=== PATIENT | male | born 1945 | race African-American/Black ===

== ENCOUNTER 2021-06-20 15:16 | Emergency (ER) | payer OTHER, BC ==
[2021-06-20] MEDS ORDERED: FENTANYL CITR 100 MCG/2 ML ONE (16:47)
[2021-06-20] MEDS ORDERED: FAMOTIDINE 20 MG/2 ML VIAL IV ONE (16:48)
[2021-06-20] MEDS ORDERED: NA CHLORIDE 0.9% 500 ML ONE (16:48)
[2021-06-20] MEDS ORDERED: ONDANSETRON 4 MG/2 ML VIAL ONE (16:48)
[2021-06-20 17:01] LABS: Absolute Lymphocytes (CBC) 1.1 K/uL (0.7-4.9); Basophils % 0.9 % (0-1.3); Hematocrit 34.9 % (39.6-49.0); Lymphocytes % 24.1 % (15.3-44.8); MPV 7.7 fL (7.6-11.3); Protime INR 1.05; RBC Red Blood Cell Count 4.06 M/uL (4.33-5.43)
[2021-06-20 17:27] LABS: ALT/SGPT 23 U/L (12-78); AST/SGOT 24 U/L (15-37); Albumin 3.9 g/dL (3.4-5.0); Alkaline Phosphatase 69 U/L (45-117); BUN Blood Urea Nitrogen 28 mg/dL (7-18); Bicarbonate 27 mmol/L (21-32); Bilirubin Direct < 0.1 mg/dL (0-0.2); Bilirubin Total 0.2 mg/dL (0.2-1.0); Glucose Level 146 mg/dL (74-106); Lipase 47 U/L (73-393); Magnesium 2.4 mg/dL (1.8-2.4); NT PRO-BNP 26 pg/mL (<450); Potassium 3.7 mmol/L (3.5-5.1); Protein, Total 7.2 g/dL (6.4-8.2); Sodium Level 142 mmol/L (136-145); Troponin (Emerg Dept Use Only) < 0.02 ng/mL (0.0-0.045)
--- NOTE | 2021-06-20 18:41 | RAD REPORT ---
EXAM DESCRIPTION: CT - Abdomen Pelvis Wo Contrast - 06/20/2021 6:30 pm CLINICAL HISTORY: Abdominal pain. ABD PAIN COMPARISON: <Comparisons> TECHNIQUE: CT imaging of the abdomen and pelvis was performed without contrast. Solid organ, bowel a nd vascular assessment is limited due to lack of IV and oral contrast. All CT scans are performed using dose optimization technique as appropriate and may include automated exposure control or mA/KV adjustment according to patient size. FINDINGS: The lower lung [place] are clear.Mild circumferential thickened distal esophagus. The liver, spleen, pancreas, adrenal glands and kidneys are within normal limits for a limited non-co ntrast examination. No bowel obstruction, free air, free fluid or abscess. Penile prosthesis. Normal appendix. The osseous structures are within normal limits. IMPRESSION: No acute intra-abdominal or pelvic findings. Incidental findings as noted above. A limited non-contrast examination was performed as detailed.
--- NOTE | 2021-06-20 19:01 | RAD REPORT ---
EXAM DESCRIPTION: RAD - Chest Single View - 06/20/2021 4:19 pm CLINICAL HISTORY: abdominal pain COMPARISON: Chest Pa And Lat (2 Views) dated 01/09/2020 FINDINGS: No evidence of edema or pneumonia. Mild cardiomegaly.No acute osseous abnormality. No sign ificant pleural effusions or pneumothorax. IMPRESSION: No acute cardiopulmonary disease.
[2021-06-20] MEDS ORDERED: PANTOPRAZOLE 40 MG INJ ONE (19:44)
--- NOTE | 2021-06-22 16:51 | EDPHYS ---
Physician Documentation [facility] Name: Fredy Bourne Sr Age: 75 yrs Sex: Male : 1945 Arrival Date: 06/20/2021 Time: 15:16 Bed 18 Private MD: ED Physician Ben Keen HPI: 06/20 16:10 This 75 yrs old Black Male presents to ER via Ambulatory with complaints of Abdominal cp Pain. 16:10 The patient presents with abdominal pain mid abdomen. Onset: The symptoms/episode cp began/occurred 1 hour(s) ago. The symptoms do not radiate. Associated signs and symptoms: Pertinent positives: nausea, Pertinent negatives: anorexia, blood in stools, chest pain, constipation, diarrhea, fever, testicular pain, vomiting. The symptoms are described as dull, waxing/waning. Modifying factors: the symptoms are aggravated by pressure. Severity of pain: in the emergency department the pain is unchanged despite home interventions. Historical: - Allergies: 15:33 No Known Allergies; ss - PMHx: 15:33 Crohn's disease; Hypertensive disorder; Gastric reflux; ss - Immunization history:: Adult Immunizations up to date. - Social history:: Smoking status: Patient denies any tobacco usage or history of. ROS: 16:15 Constitutional: Negative for body aches, chills, fever, poor PO intake. cp 16:15 Eyes: Negative for injury, pain, redness, and discharge. cp 16:15 ENT: Negative for ear pain, sore throat, difficulty swallowing, difficulty handling secretions. 16:15 Cardiovascular: Negative for chest pain, palpitations. 16:15 Respiratory: Negative for cough, shortness of breath, wheezing. 16:15 Abdomen/GI: Positive for abdominal pain, nausea, Negative for vomiting, diarrhea, constipation, anorexia, black/tarry stool, rectal bleeding. 16:15 Back: Negative for radiated pain. 16:15 : Negative for urinary symptoms. 16:15 Neuro: Negative for altered mental status, dizziness, headache, weakness. 16:15 All other systems are negative. Exam: 16:20 Constitutional: The patient appears in no acute distress, alert, awake, non-toxic, well cp developed, well nourished, uncomfortable. 16:20 Head/Face: Normocephalic, atraumatic. cp 16:20 Eyes: Periorbital structures: appear normal, Conjunctiva: normal, no exudate, no injection, Sclera: no appreciated abnormality, Lids and lashes: appear normal, bilaterally. 16:20 ENT: External ear(s): are unremarkable, Nose: is normal, Mouth: Lips: moist, Oral mucosa: moist, Posterior pharynx: Airway: no evidence of obstruction, patent. 16:20 Chest/axilla: Inspection: normal, Palpation: is normal, no crepitus, no tenderness. 16:20 Cardiovascular: Rate: normal, Rhythm: regular. 16:20 Respiratory: the patient does not display signs of respiratory distress, Respirations: normal, no use of accessory muscles, no retractions, labored breathing, is not present, Breath sounds: are clear throughout, no decreased breath sounds. 16:20 Abdomen/GI: Inspection: abdomen appears normal, Bowel sounds: active, all quadrants, Palpation: soft, in all quadrants, moderate abdominal tenderness, in the right upper quadrant, left upper quadrant and left lower quadrant, rebound tenderness, is not appreciated, voluntary guarding, is elicited in the right upper quadrant, left upper quadrant and left lower quadrant. 16:20 Back: pain, is absent, ROM is normal. 17:07 ECG was reviewed by the Attending Physician. cp Vital Signs: 15:34 BP 97 / 50; Pulse 76; Resp 18; Temp 98.1(TE); Pulse Ox 99% on R/A; Weight 58.51 kg; ss Height 5 ft. 6 in. (167.64 cm); Pain 9/10; 16:30 BP 142 / 68; Pulse 80; Resp 17; Pulse Ox 100% ; bp 17:30 BP 127 / 70; Pulse 82; Resp 15; Pulse Ox 100% ; bp 18:27 BP 141 / 73; Pulse 85; Resp 14; Pulse Ox 98% ; bp 20:00 BP 149 / 79; Pulse 84; Resp 18; Pulse Ox 100% on R/A; jb4 15:34 Body Mass Index 20.82 (58.51 kg, 167.64 cm) ss MDM: 16:03 Patient medically screened. cp 17:00 Differential diagnosis: bowel obstruction, gastritis, non-specific abd pain, cp pancreatitis, Peptic Ulcer Disease, Perf. Duodenal Ulcer, Perf. Gastric Ulcer, exacerbation of Crohn's disease. 19:45 Data reviewed: vital signs, nurses notes, lab test result(s), radiologic studies, CT cp scan. 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 19:47 Response to treatment: the patient's symptoms have markedly improved after treatment, cp VSS. Pain improved. Discussed results of labs and radiology studies that showed concern for thickening of distal esophagus. Will discharge to home and recommend f/u with GI. 06/20 16:05 Order name: Basic Metabolic Panel 06/20 16:05 Order name: CBC with Diff 06/20 16:05 Order name: LFT's; Complete Time: 18:20 06/20 16:05 Order name: Magnesium; Complete Time: 18:20 06/20 16:05 Order name: NT PRO-BNP; Complete Time: 18:20 06/20 16:05 Order name: PT-INR; Complete Time: 18:20 06/20 16:05 Order name: Troponin (emerg Dept Use Only); Complete Time: 18:20 06/20 16:05 Order name: XRAY Chest (1 view); Complete Time: 19:03 06/20 16:05 Order name: Lipase; Complete Time: 18:20 06/20 16:06 Order name: Basic Metabolic Panel; Complete Time: 18:20 EDME 06/20 18:21 Interpretation: Normal except: CL 108; GLUC 146; BUN 28; CRE 1.54; GFR 53; CA 8.4. 06/20 16:06 Order name: CBC with Automated Diff; Complete Time: 18:20 EDMS 06/20 18:21 Interpretation: Normal except: RBC 4.06; HGB 11.7; HCT 34.9; MN% 13.1. 06/20 18:04 Order name: Abdomen ; Complete Time: 19:03 EDME 06/20 16:05 Order name: EKG; Complete Time: 16:06 cp 06/20 16:05 Order name: Cardiac monitoring; Complete Time: 16:47 06/20 16:05 Order name: EKG - Nurse/Tech; Complete Time: 17:02 cp 06/20 16:05 Order name: IV Saline Lock; Complete Time: 16:46 cp 06/20 16:05 Order name: Labs collected and sent; Complete Time: 16:46 cp 06/20 16:05 Order name: O2 Per Protocol; Complete Time: 16:46 cp 06/20 16:05 Order name: O2 Sat Monitoring; Complete Time: 16:46 cp 06/20 19:45 Order name: PO challenge; Complete Time: 20:02 cp EC: Rate is 86 beats/min. Rhythm is regular. OH interval is normal. QRS interval is normal. cp QT interval is normal. T waves are Inverted in lead aVR. Interpreted by me. Reviewed by me. Administered Medications: 16:40 Drug: NS 0.9% 500 ml Route: IV; Rate: bolus; Site: right forearm; bp 16:40 Drug: Zofran (Ondansetron) 4 mg Route: IVP; Site: right forearm; bp 16:40 Drug: Pepcid (famotidine) 20 mg Route: IVP; Site: right forearm; bp 16:40 Drug: fentaNYL (PF) 25 mcg Route: IVP; Site: right forearm; bp 19:15 Drug: ProTONIX (pantoprazole) 40 mg Route: IVP; Site: right antecubital; jb4 20:28 Follow up: Response: No adverse reaction jb4 Disposition Summary: 06/20/21 19:47 Discharge Ordered Location: Home cp Problem: an acute exacerbation cp Symptoms: have improved cp Condition: Stable cp Diagnosis - Abdominal pain, unspecified - history of Crohn's Disease cp Followup: cp - With: Frank Kaur MD - When: 2 - 3 days - Reason: Recheck today's complaints Discharge Instructions: - Discharge Summary Sheet cp - Abdominal Pain, Adult cp - Crohn's Disease cp Forms: - Medication Reconciliation Form cp - Thank You Letter cp - Antibiotic Education cp - Prescription Opioid Use cp Prescriptions: - Cipro 500 mg Oral Tablet - take 1 tablet by ORAL route every 12 hours for 10 days; 20 tablet; Refills: 0, cp Product Selection Permitted - Protonix 40 mg Oral Tablet - take 1 tablet by ORAL route once daily; 30 tablet; Refills: 0, Product cp Selection Permitted - Zofran 4 mg Oral Tablet - take 1 tablet by ORAL route every 12 hours As needed; 20 tablet; Refills: 0, cp Product Selection Permitted - Metronidazole 500 mg Oral Tablet - take 1 tablet by ORAL route every 8 hours; 30 tablet; Refills: 0, Product cp Selection Permitted - Medrol (Phillip) 4 mg Oral Tablets, Dose Pack - take 1 tablet by ORAL route as directed - follow package instructions; 1 cp packet; Refills: 0, Product Selection Permitted - dicyclomine 20 mg Oral Tablet - take 1 tablet by ORAL route 4 times per day; 30 tablet; Refills: 0, Product cp Selection Permitted Signatures: Dispatcher [employer] EDMS Kenzie Nguyễn RN RN ss Jorge Lorenzo PA PA cp Madi Waters, RN RN jb4 Hernando Cota RN RN bp Corrections: (The following items were deleted from the chart) 18:04 16:41 Abdomen Pelvis W Con+CT.RAD.BRZ ordered. EDME EDMS
--- NOTE | 2021-06-22 16:51 | ER ---
Nurse's Notes [facility] Name: Fredy Bourne Sr Age: 75 yrs Sex: Male : 1945 Arrival Date: 06/20/2021 Time: 15:16 Bed 18 Private MD: Diagnosis: Abdominal pain, unspecified-history of Crohn's Disease Presentation: 06/20 15:25 Chief complaint: Patient states: abd pain that began [address] Ramos told patient ss to come to ER to have a CT scan when he is having pain. Pt reports he had a CT 3 weeks ago which didn't show anything, but he wasn't having the pain at this time. HX of Crohns disease. Coronavirus screen: Client denies travel out of the [place] in the last 14 days. Ebola Screen: Patient denies exposure to infectious person. Patient denies travel to an Ebola-affected area in the 21 days before illness onset. Initial Sepsis Screen: Does the patient meet any 2 criteria? No. Patient's initial sepsis screen is negative. Does the patient have a suspected source of infection? No. Patient's initial sepsis screen is negative. Risk Assessment: Do you want to hurt yourself or someone else? Patient reports no desire to harm self or others. Onset of symptoms was June 20, 2021. 15:25 Method Of Arrival: Ambulatory ss 15:25 Acuity: ALETA 3 ss Triage Assessment: 15:30 General: Appears distressed, uncomfortable, slender, Behavior is cooperative, bp appropriate for age. Pain: Complains of pain in abdomen. EENT: No deficits noted. Neuro: Level of Consciousness is awake, alert, obeys commands, Oriented to none. Cardiovascular: No deficits noted. Respiratory: No deficits noted. GI: Reports lower abdominal pain, nausea, vomiting. : No signs and/or symptoms were reported regarding the genitourinary system. Derm: No deficits noted. Musculoskeletal: No deficits noted. Historical: - Allergies: 15:33 No Known Allergies; ss - PMHx: 15:33 Crohn's disease; Hypertensive disorder; Gastric reflux; ss - Immunization history:: Adult Immunizations up to date. - Social history:: Smoking status: Patient denies any tobacco usage or history of. Screenin:45 Abuse screen: Denies threats or abuse. Denies injuries from another. Nutritional bp screening: No deficits noted. Tuberculosis screening: No symptoms or risk factors identified. Fall Risk None identified. Assessment: 15:30 General: SEE TRIAGE NOTE. bp 16:15 Reassessment: No changes from previously documented assessment. Patient and/or family bp updated on plan of care and expected duration. Pain level reassessed. PO CONTRAST COMPLETED, CT NOTIFIED. 18:26 Reassessment: PT TO CT. bp 19:00 Reassessment: Patient appears in no apparent distress at this time. Patient and/or jb4 family updated on plan of care and expected duration. Pain level reassessed. Patient is alert, oriented x 3, equal unlabored respirations, skin warm/dry/pink. 20:00 Reassessment: Patient appears in no apparent distress at this time. Patient and/or jb4 family updated on plan of care and expected duration. Pain level reassessed. Patient is alert, oriented x 3, equal unlabored respirations, skin warm/dry/pink. Vital Signs: 15:34 BP 97 / 50; Pulse 76; Resp 18; Temp 98.1(TE); Pulse Ox 99% on R/A; Weight 58.51 kg; ss Height 5 ft. 6 in. (167.64 cm); Pain 9/10; 16:30 BP 142 / 68; Pulse 80; Resp 17; Pulse Ox 100% ; bp 17:30 BP 127 / 70; Pulse 82; Resp 15; Pulse Ox 100% ; bp 18:27 BP 141 / 73; Pulse 85; Resp 14; Pulse Ox 98% ; bp 20:00 BP 149 / 79; Pulse 84; Resp 18; Pulse Ox 100% on R/A; jb4 15:34 Body Mass Index 20.82 (58.51 kg, 167.64 cm) ED Course: 15:16 Patient arrived in ED. ds1 15:33 Triage completed. ss 15:33 Arm band placed on right wrist. ss 15:45 Patient has correct armband on for positive identification. Bed in low position. Call bp light in reach. Side rails up X2. Adult w/ patient. 15:51 Hernando Cota, MITZI is Primary Nurse. bp 15:52 Jorge Lorenzo PA is PHCP. cp 15:52 Ben Keen MD is Attending Physician. cp 16:19 XRAY Chest (1 view) In Process Unspecified. EDMS 16:42 Inserted saline lock: 20 gauge in right forearm, using aseptic technique. Blood bp collected. 17:12 Placed in gown. Side rails up X 1. Adult w/ patient. Warm blanket given. Cardiac 5 monitor on. Pulse ox on. NIBP on. 17:12 Initial lab(s) drawn, by ED staff, sent to lab. EKG done, by ED staff, reviewed by 5 Ben Keen MD. 17:13 Basic Metabolic Panel Sent. 5 17:13 CBC with Diff Sent. 5 17:[address] [facility] 17:[address] [facility] 17:13 NT PRO-BNP Sent. [facility] 17:13 Troponin (emerg Dept Use Only) Sent. [facility] 18:30 Abdomen In Process Unspecified. EDMS 19:46 Frank Kaur MD is Referral Physician. cp 20:27 No provider procedures requiring assistance completed. IV discontinued, intact, jb4 bleeding controlled, No redness/swelling at site. Pressure dressing applied. Administered Medications: 16:40 Drug: NS 0.9% 500 ml Route: IV; Rate: bolus; Site: right forearm; bp 16:40 Drug: Zofran (Ondansetron) 4 mg Route: IVP; Site: right forearm; bp 16:40 Drug: Pepcid (famotidine) 20 mg Route: IVP; Site: right forearm; bp 16:40 Drug: fentaNYL (PF) 25 mcg Route: IVP; Site: right forearm; bp 19:15 Drug: ProTONIX (pantoprazole) 40 mg Route: IVP; Site: right antecubital; jb4 20:28 Follow up: Response: No adverse reaction jb4 Outcome: 19:47 Discharge ordered by MD. cp 20:27 Discharged to home ambulatory. jb4 20:27 Condition: stable 20:27 Discharge instructions given to patient, Instructed on discharge instructions, follow up and referral plans. medication usage, Demonstrated understanding of instructions, follow-up care, medications, Prescriptions given X 6 20:28 Patient left the ED. jb4 Signatures: Dispatcher [facility] Leil[facility] San ds1 Kenzie Nguyễn RN RN ss Page, Corey, PA PA cp Madi Waters RN RN jb4 Tamara Zhou [facility] Hernando Cota, RN RN bp
[2021-06-22 23:04] VITALS: TEMP 98.1
[2021-06-22 23:12] VITALS: BP 149/79; O2SAT 100
== END 2021-06-20 20:28 | disposition home or self-care (01) ==
LOC: ER 15:16
DX: R10.9 Unspecified abdominal pain (principal); K50.90 Crohn's disease, unspecified, without complications; I10 Essential (primary) hypertension
CPT/HCPCS: 93005; 85025; 80048; 36415; 83735; 85610; 80076; 84484; 83690; 83880; 74176; 71045; 99285; C9113; J3010; J7040; J2405; 96374; 96375

== ENCOUNTER 2022-04-14 06:27 | Day surgery (SDC) | payer OTHER, BC ==
--- NOTE | 2022-04-13 14:07 | RAD REPORT ---
EXAM DESCRIPTION: RAD - Chest Pa And Lat (2 Views) - 04/13/2022 2:02 pm CLINICAL HISTORY: Pre op pending exploratory lap COMPARISON: Chest Single View dated 06/20/2021; Chest Pa And Lat (2 Views) dated 01/09/2020 FINDINGS: Lines: None. Lungs: No evidence of edema or pneumonia. Pleural: No significant pleural effusions or pneumothorax. Cardiac: The heart size is within normal limits. Bones: No acute fractures. Other: IMPRESSION: No acute cardiopulmonary disease.
[2022-04-13 14:41] LABS: Absolute Lymphocytes (CBC) 1.5 K/uL (0.7-4.9); Hematocrit 36.1 % (39.6-49.0); Lymphocytes % 27.3 % (15.3-44.8); MPV 7.4 fL (7.6-11.3); RBC Red Blood Cell Count 4.23 M/uL (4.33-5.43)
[2022-04-13 14:52] LABS: Potassium 3.7 mmol/L (3.5-5.1)
[2022-04-14] MEDS ORDERED: Ringers Lactate 1,000 ML IV ONE ×3 (06:35→11:19)
[2022-04-14] MEDS ORDERED: MIDAZOLAM HCL 2 MG/2 ML INJ ONE ×2 (07:02→10:22)
[2022-04-14] MEDS ORDERED: propofoL 200 MG/20 ML VIAL IV ONE (07:02)
[2022-04-14] MEDS ORDERED: ACETAMINOPHEN 500 MG TAB ONE (07:02)
[2022-04-14] MEDS ORDERED: dexAMETHasone 10 MG/ML VIAL ONE (07:03)
[2022-04-14] MEDS ORDERED: CELECOXIB 100 MG CAPSULE ONE (07:03)
[2022-04-14] MEDS ORDERED: ROCURONIUM 50 MG/5 ML VIAL IV ONE (07:03)
[2022-04-14] MEDS ORDERED: LIDOCAINE 1% MPF 5 ML VIAL ONE (07:03)
[2022-04-14] MEDS ORDERED: FENTANYL CITR 250 MCG/5 ML ONE (07:03)
[2022-04-14] MEDS ORDERED: ONDANSETRON 4 MG/2 ML VIAL ONE ×2 (07:05→09:41)
--- NOTE | 2022-04-14 07:38 | EKG ---
Test Date: 2022-04-13 Test Time: 13:48:44 Service Station Attendant: SULLY MEASUREMENT RESULTS: Intervals: Rate: 73 MA: 176 QRSD: 78 QT: 358 QTc: 394 Rodeo: P: 82 MA: 176 QRS: 20 T: 78 INTERPRETIVE STATEMENTS: Normal sinus rhythm Normal ECG Compared to ECG 06/20/2021 17:00:30 No significant changes Electronically Signed On 04-14-22 07:37:05 CDT by Davin Roman
[2022-04-14] MEDS: CEFOXITIN SODIUM 1 GM/VIAL ONE ×2 (07:39→07:45)
[2022-04-14] MEDS: BUPIVACAINE 0.5% Inj,MDV 50 mL VIAL ONE ×2 (07:40→07:50)
[2022-04-14] MEDS ORDERED: EPHEDRINE SULF 50 MG/ML VIAL ONE (07:56)
[2022-04-14] MEDS ORDERED: GLYCOPYRROLATE 0.2 MG/ML SYR ONE (08:43)
[2022-04-14] MEDS ORDERED: NEOSTIGMINE 1 MG/ML -10 ML VIAL ONE (08:47)
[2022-04-14] MEDS ORDERED: KETOROLAC 30 MG/ML INJ ONE (08:48)
[2022-04-14] MEDS ORDERED: Mastisol Adhesive Liq ONE (08:52)
[2022-04-14] MEDS: HYDROMORPHONE HCL 1 MG/ML INJ ONE ×6 (09:37→10:08)
--- NOTE | 2022-04-14 09:45 | P.OP ---
Date of Service: 04/14/22 Preop diagnosis: Chronic abdominal pain Postop diagnosis: Same, adhesive band causing internal herniation, chronic appendicitis Procedure performed: Diagnostic laparoscopy, lysis of adhesions, laparoscopic appendectomy Surgeon: Matt Robert MD Sewer Pipe Sorter: Geoff HAY Estimated blood loss: Minimal Specimen: Appendix Findings: As above Anesthesia: General Complications: None Drains: None Fluids and blood products: Not applicable Disposition: Recovery room Operative note: Patient brought to the OR and placed in the supine position. General anesthesia begun. Patient prepped and draped in the usual sterile fashion. 0.5% Marcaine infiltrated locally for postop pain control. 15 blade used to make a 1 cm supraumbilical incision. Subcutaneous tissue divided and fascia identified and divided. #1 Vicryl stay suture placed. Peritoneal cavity entered with sharp and blunt dissection. 12 mm trocar placed into the peritoneal cavity under direct vision. Pneumoperitoneum established. And then 2 5 mm trochars placed. 1 placed in the left lower quadrant the other in the left middle quadrant. Laparoscopy revealed a adhesive band in the right lower quadrant next to the appendix which was obstructing middle of the small bowel. This was lysed with LigaSure. And the bowel was run all the way to the ligament of Treitz with no other evidence of disease. The appendix appeared to be secondarily inflamed because it was close to the adhesive band. LigaSure utilized to divide the mesoappendix. An Endo YOGI stapling device used to divide the base of the appendix on the cecum. Right lower quadrant irrigated effluent clear no evidence of bleeding or bowel injury appreciated. Then the entire small bowel ran again without any other evidence of disease. Subsequently all trochars removed under direct vision. Stay sutures tied to each other to reapproximate the fascial defect. Subcutaneous wounds irrigated and bleeding controlled with cautery. 3-0 chromic used to reapproximate subcutaneous tissue and closed skin. Sterile dressing applied. Patient awakened taken to recovery room in good general condition. CC: Dr. Kaur's office
[2022-04-14] MEDS ORDERED: PROMETHAZINE 25 MG TABLET PO PRN (09:46)
[2022-04-14] MEDS ORDERED: HYDROCODONE/APAP 7.5/325 MG TAB PO PRN (09:46)
[2022-04-14] MEDS: FLUMAZENIL 0.1 MG/ML (5 mL VIAL) IV ONE ×4 (11:15→11:30)
[2022-04-14 15:03] VITALS: BP 121/61; TEMP 96.4; O2SAT 97
== END 2022-04-14 14:50 | disposition home or self-care (01) ==
LOC: OR 06:27
PROVIDERS: ATTEND Surgery
PROC: 0DTJ4ZZ Resection of Appendix, Percutaneous Endoscopic Approach (ICD-10-PCS; principal; 2022-04-14 07:30)
DX: K37 Unspecified appendicitis (principal); K66.0 Peritoneal adhesions (postprocedural) (postinfection); Z20.822 Contact with and (suspected) exposure to COVID-19
CPT/HCPCS: 93005; 85025; 80048; 36415; 88304; 71046; 44970; U0003; J2704; J2710; J2250; J3010; J1100; J1170 ×3; J7120 ×2; J0694; J2405 ×2